=== PATIENT | male | born 1940 | race Caucasian/White ===

== ENCOUNTER 2023-07-27 05:37 | Day surgery (SDC) | payer MEDICARE, BC ==
[2023-07-20 11:52] LABS: BASOPHILS % (AUTO) 0.6 % (0-1); EOSINOPHILS # (AUTO) 0.1 X10'3 (0-0.9); EOSINOPHILS % (AUTO) 2.1 % (0-6); HEMATOCRIT 49.4 % (42.0-52.0); HEMOGLOBIN 16.5 g/dl (14.0-17.9); LYMPHOCYTES # (AUTO) 1.3 X10'3 (1.1-4.8); LYMPHOCYTES % (AUTO) 20.5 % (21-51); MEAN CORPUSCULAR HEMOGLOBIN 32.6 PG (27.0-31.0); MEAN CORPUSCULAR HGB CONC 33.3 g/dL (33.0-36.5); MEAN CORPUSCULAR VOLUME 97.8 FL (78-98); MEAN PLATELET VOLUME 7.3 FL (7.4-10.4); MONOCYTES # (AUTO) 0.6 X10'3 (0-0.9); MONOCYTES % (AUTO) 9.2 % (2-12); NEUTROPHILS # (AUTO) 4.2 X10'3 (1.8-7.7); NEUTROPHILS % (AUTO) 67.6 % (42-75); PLATELET COUNT 199 X10'3 (140-440); RED BLOOD COUNT 5.05 X10'6 (4.70-6.10); RED CELL DISTRIBUTION WIDTH 13.6 % (11.5-14.5); WHITE BLOOD COUNT 6.2 X10'3 (4.5-11.0)
[2023-07-20 12:07] LABS: ALANINE AMINOTRANSFERASE 16 U/L (12-78); ALBUMIN 3.8 G/DL (3.4-5.0); ALBUMIN/GLOBULIN RATIO 1.1 (1.1-1.5); ALKALINE PHOSPHATASE 67 IU/L (46-116); ANION GAP 7 (8-16); ASPARTATE AMINO TRANSFERASE 22 U/L (10-37); BILIRUBIN,TOTAL 0.5 MG/DL (0.1-1.0); BLOOD UREA NITROGEN 31 MG/DL (7-18); BUN/CREATININE RATIO 24.6 (10.0-20.0); CALCIUM 10.2 MG/DL (8.5-10.1); CHLORIDE 103 MMOL/L (99-107); CREATININE 1.26 MG/DL (0.60-1.10); GLUCOSE 137 MG/DL (70-104); POTASSIUM 4.5 MMOL/L (3.5-5.1); SODIUM 135 MMOL/L (135-145); TOTAL CARBON DIOXIDE 24.6 MMOL/L (24-32); TOTAL PROTEIN 7.4 G/DL (6.4-8.2); eGFR 55 ML/MIN
[~2023-07-27] VITALS: Ht 180.3 cm; Wt 125.9 kg
[2023-07-27] VITALS (10 sets, daily range): BP systolic 82–120; BP diastolic 56–78; PULSE 60–62; RESP 12–17; TEMP 98.1; O2SAT 93–96
[~2023-07-27 05:37] MED LIST: APIX5TAB3 PO; BISO10TA16 PO; CHOL200035 PO; DAPA10TA PO; DOCUMENT DATE & TIME OF BETA-BLOCKER PO ONE; FLUT1BLS13 INH; LEVO50TA8 PO; MELO-102 PO; METF500T PO; MULT-342 PO; PSYLLIUM FIBER; SACU1TAB PO; SIMV-42 PO; SPIR25TA5 PO; VITAMIN B 12; VITAMIN D 3; [UNRECOGNIZED DRUG - CODE] PO; clindamycin-Cleocin 900mg/D5W 50 ML IV ONE; famotidine 20mg tablet PO ONE; ringers solution, lacted 1,000 ML IV SCH
[2023-07-27] MEDS ORDERED: BUPIVAcaine/PF 2.5mg/ml (0.25%) 10ml vial ONE (06:38)
[2023-07-27] MEDS ORDERED: cloNIDine hcl/PF 100mcg/ml inj ONE ×2 (07:30→07:34)
[2023-07-27] MEDS ORDERED: fentaNYL/PF 50MCG/1 ML 2ML syringe ONE (07:32)
[2023-07-27] MEDS ORDERED: midazolam 1 mg/ML 2ml injection ONE (07:33)
[2023-07-27] MEDS ORDERED: sevoflurane 250ml liquid IH ONE (07:38)
[2023-07-27] MEDS ORDERED: LIDOcaine 2% (20mg/ml) 5ml vial ONE (08:14)
[2023-07-27] MEDS ORDERED: dexamethasone sod phosphate 4mg/ml inj. ONE ×2 (08:14→08:24)
[2023-07-27] MEDS ORDERED: phenylephrine 10mg/ml inj. -priapism dosing ONE (08:14)
[2023-07-27] MEDS ORDERED: 0.9 % SODIUM CHLORIDE 10 ML VIAL ONE (08:14)
[2023-07-27] MEDS ORDERED: propofol inj 20 ML IV ONE (08:14)
[2023-07-27] MEDS ORDERED: ROPIVAcaine 0.5% (5mg/ml) 30ml vial ONE (08:14)
[2023-07-27] MEDS ORDERED: ondansetron/PF 4mg/2ml inj ONE (08:24)
[2023-07-27] MEDS ORDERED: labetalol 20mg/4ml (5mg/ml) syringe IV PRN (08:35)
[2023-07-27] MEDS ORDERED: hydrALAZINE 20mg/ml inj. IV PRN (08:35)
[2023-07-27] MEDS ORDERED: ringers solution, lacted 1,000 ML IV SCH (08:35)
[2023-07-27] MEDS ORDERED: acetaminophen 1,000mg/100ml IV 100 ML IV PRN (08:35)
[2023-07-27] MEDS ORDERED: ondansetron/PF 4mg/2ml inj IV PRN (08:35)
[2023-07-27] MEDS ORDERED: proCHLORperazine 10 MG/2 ml inj IV PRN (08:35)
[2023-07-27] MEDS ORDERED: meperidine/PF 25mg/ml syringe IV PRN ×3 (08:35)
[2023-07-27] MEDS ORDERED: morphine 2 MG/ML inj. syringe IV PRN (08:35)
[2023-07-27] MEDS ORDERED: morphine 4 MG/ML inj SYRINge IV PRN (08:35)
--- NOTE | 2023-07-27 09:15 | NUR ---
Received from OR via [facility] TO RR 7, accompanied by Anesthesiologist ABBY and report given by Anesthesiologist. PT PRESENTS ON 6L VIA MASK WITH ORAL AIRWAY IN PLACE. PATIENT IS SHOWING NO S/S OF DISTRESS. BP 94/64, DR MORA AWARE AND IS AWARE; NO NEW ORDERS AT THIS TIME. LR RUNNING THRU PIV ON RIGHT WRIST. Addendum: 07/27/23 at 0939 by Virginia Flores RN LEFT ARM/WRIST DRESSING CDI, ICE APPLIED AND ELEVATED
--- NOTE | 2023-07-27 09:59 | NUR ---
CALLED TO GIVE UPDATE
--- NOTE | 2023-07-27 10:35 | NUR ---
PATIENT IS STABLE FOR DISCHARGE PER MD ORDERS. REVIEWED ALL DISCHARGE PAPERWORK WITH PATIENT. ADVISED OF FREQUENT MOVEMENT OF FINGERS, ELEVATION, AND ICE. PATIENT STATES PAIN IS TOLERABLE AND DRESSING TO LEFT WRIST REMAINS CDI. ALL PERSONAL BELONGINGS WERE SENT WITH PATIENT. PATIENT WAS ABLE TO GET DRESSED WITH ASSISTANCE, PATIENT WAS ABLE TO AMBULATE TO WHEELCHAIR. PATIENT WAS WHEELED OUT TO PRIVATE VEHICLE WHERE WAS WAITING AND TRANSFERRED INTO VEHICLE WITHOUT INCIDENT.
== END 2023-07-27 10:35 | disposition home or self-care (01) ==
LOC: PRE-OP 05:37
PROVIDERS: ATTEND Orthopaedic Surgery Hand Surgery
DX: M19.032 Primary osteoarthritis, left wrist (principal); E11.9 Type 2 diabetes mellitus without complications; I48.91 Unspecified atrial fibrillation; I11.0 Hypertensive heart disease with heart failure; I50.9 Heart failure, unspecified; G89.18 Other acute postprocedural pain; E66.01 Morbid (severe) obesity due to excess calories; Z68.38 Body mass index [BMI] 38.0-38.9, adult; Z79.899 Other long term (current) drug therapy; Z88.0 Allergy status to penicillin; Z79.84 Long term (current) use of oral hypoglycemic drugs; Z95.0 Presence of cardiac pacemaker; Z98.890 Other specified postprocedural states; Z72.89 Other problems related to lifestyle; Z96.653 Presence of artificial knee joint, bilateral; Z79.01 Long term (current) use of anticoagulants
CPT/HCPCS: 25800; 36415; 64417; 80053; 82948; 85025; C1713; J0131; J0735; J1100; J2250; J2370; J2405; J2704; J2795; J3010; J3490; J7030; J7120; Z7506; Z7508; Z7512; A4615; A4618; A6449; A7000

== ENCOUNTER → 2023-12-31 | Day surgery (SDC) | payer MEDICARE, BC ==
[2023-12-26 11:18] LABS: BASOPHILS % (AUTO) 0.7 % (0-1); EOSINOPHILS # (AUTO) 0.1 X10'3 (0-0.9); EOSINOPHILS % (AUTO) 2.3 % (0-6); LYMPHOCYTES # (AUTO) 1.2 X10'3 (1.1-4.8); LYMPHOCYTES % (AUTO) 19.8 % (21-51); MEAN CORPUSCULAR HEMOGLOBIN 30.7 PG (27.0-31.0); MEAN CORPUSCULAR HGB CONC 33.2 g/dL (33.0-36.5); MEAN CORPUSCULAR VOLUME 92.4 FL (78-98); MEAN PLATELET VOLUME 6.9 FL (7.4-10.4); MONOCYTES # (AUTO) 0.6 X10'3 (0-0.9); MONOCYTES % (AUTO) 10.9 % (2-12); NEUTROPHILS # (AUTO) 3.9 X10'3 (1.8-7.7); NEUTROPHILS % (AUTO) 66.3 % (42-75); PRE OP HEMATOCRIT 47.6 % (42.0-52.0); PRE OP HEMOGLOBIN 15.8 g/dL (14.0-17.9); PRE OP PLATELET COUNT 204 X10'3 (140-440); PRE OP WHITE BLOOD COUNT 5.9 10'3 (4.8-10.8); RED BLOOD COUNT 5.15 X10'6 (4.70-6.10); RED CELL DISTRIBUTION WIDTH 15.1 % (11.5-14.5)
[2023-12-26 11:36] LABS: ALBUMIN 3.5 G/DL (3.4-5.0); ALBUMIN/GLOBULIN RATIO 0.9 (1.1-1.5); ALKALINE PHOSPHATASE 72 IU/L (46-116); BLOOD UREA NITROGEN 34 MG/DL (7-18); BUN/CREATININE RATIO 27.2 (10.0-20.0); CALCIUM 9.9 MG/DL (8.5-10.1); CHLORIDE 104 MMOL/L (99-107); CREATININE 1.25 MG/DL (0.60-1.10); PRE OP ALT 25 U/L (30-65); PRE OP ANION GAP 9 (8-16); PRE OP AST 23 U/L (10-37); PRE OP BILIRUB, TOTAL 0.7 MG/DL (0.0-1.0); PRE OP GLUCOSE 115 MG/DL (70-104); PRE OP POTASSIUM 4.3 MMOL/L (3.4-5.1); PRE OP SODIUM 137 MMOL/L (135-145); TOTAL CARBON DIOXIDE 23.6 MMOL/L (24-32); TOTAL PROTEIN 7.6 G/DL (6.4-8.2); eGFR 55 ML/MIN
[~2023-12-31] VITALS: Ht 180.3 cm; Wt 125.5 kg
[2023-12-31] VITALS (7 sets, daily range): BP systolic 101–125; BP diastolic 67–76; PULSE 58–70; RESP 12–16; TEMP 97.5; O2SAT 93–100
[~2023-12-31] MED LIST changes: +AMI200T PO; +BUPIVAcaine/PF 2.5mg/ml (0.25%) 10ml vial ONE; -DOCUMENT DATE & TIME OF BETA-BLOCKER PO ONE; +FURO20TA4 PO; +HYDROmorphone/PF 0.2 MG/ML SYRINGE IV PRN; +LIDOcaine 2% (20mg/ml) 5ml vial ONE; +ROPIVAcaine 0.5% (5mg/ml) 30ml vial ONE; +acetaminophen 1,000mg/100ml IV 100 ML IV ONE; -clindamycin-Cleocin 900mg/D5W 50 ML IV ONE; +cloNIDine hcl/PF 100mcg/ml inj ONE; +dexamethasone sod phosphate 4mg/ml inj. ONE; +ePHEDrine 50MG/ML INJ. ONE; -famotidine 20mg tablet PO ONE; +fentaNYL/PF 50MCG/1 ML 2ML syringe ONE; +hydrALAZINE 20mg/ml inj. IV PRN; +ketorolac tromethamine 15mg/ml inj. IV ONE; +labetalol 20mg/4ml (5mg/ml) syringe IV PRN; +meperidine/PF 25mg/ml syringe IV PRN; +midazolam 1 mg/ML 2ml injection ONE; +ondansetron/PF 4mg/2ml inj IV PRN; +ondansetron/PF 4mg/2ml inj ONE; +proCHLORperazine 10 MG/2 ml inj IV PRN; +propofol inj 20 ML IV ONE; +sevoflurane 250ml liquid IH ONE
[2023-12-31] MEDS: DOCUMENT DATE & TIME OF BETA-BLOCKER PO ONE (05:30)
[2023-12-31] MEDS: clindamycin-Cleocin 900mg/D5W 50 ML IV ONE (05:30)
[2023-12-31] MEDS: famotidine 20mg tablet PO ONE (06:32)
[2023-12-31] MEDS: ringers solution, lacted 1,000 ML IV SCH (06:49)
[2023-12-31] MEDS: BUPIVAcaine/PF 2.5mg/ml (0.25%) 10ml vial ONE (08:02)
== END | disposition home or self-care (01) ==
LOC: PAS 05:39
PROVIDERS: ATTEND Orthopaedic Surgery Hand Surgery
DX: M25.532 Pain in left wrist (principal); I11.0 Hypertensive heart disease with heart failure; I50.9 Heart failure, unspecified; E11.9 Type 2 diabetes mellitus without complications; E78.5 Hyperlipidemia, unspecified; I48.91 Unspecified atrial fibrillation; E66.9 Obesity, unspecified; M19.90 Unspecified osteoarthritis, unspecified site; Z85.828 Personal history of other malignant neoplasm of skin; Z68.38 Body mass index [BMI] 38.0-38.9, adult; Z88.0 Allergy status to penicillin
CPT/HCPCS: 25810; 36415; 80053; 82948; 85025; C1713; J0735; J1100; J2250; J2405; J2704; J2795; J3010; J3490; J7030; J7120; Z7506; Z7508; Z7512; A4215; A4618; A6449; A7000

== ENCOUNTER 2025-02-16 06:44 | Day surgery (SDC) | payer MEDICARE, BC ==
[2025-02-12 13:57] LABS: BASOPHILS # (AUTO) 0.1 X10'3 (0-0.2); BASOPHILS % (AUTO) 1.4 % (0-1); EOSINOPHILS # (AUTO) 0.1 X10'3 (0-0.9); EOSINOPHILS % (AUTO) 2.1 % (0-6); HEMATOCRIT 46.5 % (42.0-52.0); HEMOGLOBIN 15.5 g/dl (14.0-17.9); LYMPHOCYTES # (AUTO) 1.5 X10'3 (1.1-4.8); LYMPHOCYTES % (AUTO) 25.8 % (21-51); MEAN CORPUSCULAR HEMOGLOBIN 29.3 PG (27.0-31.0); MEAN CORPUSCULAR HGB CONC 33.5 g/dL (33.0-36.5); MEAN CORPUSCULAR VOLUME 87.7 FL (78-98); MONOCYTES # (AUTO) 0.6 X10'3 (0-0.9); MONOCYTES % (AUTO) 11.4 % (2-12); NEUTROPHILS # (AUTO) 3.4 X10'3 (1.8-7.7); NEUTROPHILS % (AUTO) 59.3 % (42-75); PLATELET COUNT 196 X10'3 (140-440); RED CELL DISTRIBUTION WIDTH 16.6 % (11.5-14.5); WHITE BLOOD COUNT 5.6 X10'3 (4.5-11.0)
[2025-02-12 14:09] LABS: ALANINE AMINOTRANSFERASE 25 U/L (12-78); ALBUMIN 3.6 G/DL (3.4-5.0); ALBUMIN/GLOBULIN RATIO 0.9 (1.1-1.5); ALKALINE PHOSPHATASE 101 IU/L (46-116); ANION GAP 5 (8-16); ASPARTATE AMINO TRANSFERASE 21 U/L (10-37); BILIRUBIN,TOTAL 0.9 MG/DL (0.1-1.0); BLOOD UREA NITROGEN 35 MG/DL (7-18); BUN/CREATININE RATIO 24.3 (10.0-20.0); CALCIUM 9.3 MG/DL (8.5-10.1); CHLORIDE 105 MMOL/L (99-107); CREATININE 1.44 MG/DL (0.60-1.10); GLUCOSE 200 MG/DL (70-104); POTASSIUM 4.4 MMOL/L (3.5-5.1); SODIUM 138 MMOL/L (135-145); TOTAL PROTEIN 7.6 G/DL (6.4-8.2); eGFR 47 ML/MIN
[~2025-02-16] VITALS: Ht 180.3 cm; Wt 126.1 kg
[2025-02-16] MEDS: clindamycin-Cleocin 900mg/D5W 50 ML IV ONE (05:30)
[~2025-02-16 06:44] MED LIST changes: -AMI200T PO; -BUPIVAcaine/PF 2.5mg/ml (0.25%) 10ml vial ONE; +CBD GUMMIES PO; -CHOL200035 PO; +CHOL50004 PO; +CYAN250010 PO; +DOCUMENT DATE & TIME OF BETA-BLOCKER PO ONE; -HYDROmorphone/PF 0.2 MG/ML SYRINGE IV PRN; -LIDOcaine 2% (20mg/ml) 5ml vial ONE; -METF500T PO; +OMEGA XL PO; +PANT40TA54 PO; -PSYLLIUM FIBER; +PSYLLIUM FIBER PO; -ROPIVAcaine 0.5% (5mg/ml) 30ml vial ONE; -VITAMIN B 12; -VITAMIN D 3; -acetaminophen 1,000mg/100ml IV 100 ML IV ONE; -cloNIDine hcl/PF 100mcg/ml inj ONE; -dexamethasone sod phosphate 4mg/ml inj. ONE; -ePHEDrine 50MG/ML INJ. ONE; -fentaNYL/PF 50MCG/1 ML 2ML syringe ONE; -hydrALAZINE 20mg/ml inj. IV PRN; -ketorolac tromethamine 15mg/ml inj. IV ONE; -labetalol 20mg/4ml (5mg/ml) syringe IV PRN; -meperidine/PF 25mg/ml syringe IV PRN; -midazolam 1 mg/ML 2ml injection ONE; -ondansetron/PF 4mg/2ml inj IV PRN; -ondansetron/PF 4mg/2ml inj ONE; -proCHLORperazine 10 MG/2 ml inj IV PRN; -propofol inj 20 ML IV ONE; -ringers solution, lacted 1,000 ML IV SCH; -sevoflurane 250ml liquid IH ONE
[2025-02-16 06:56] VITALS: BP 132/67; PULSE 60; RESP 16; TEMP 98; O2SAT 98
[2025-02-16] MEDS ORDERED: LIDOcaine 2% (20mg/ml) 5ml vial ONE (07:05)
[2025-02-16] MEDS ORDERED: BUPIVAcaine/PF 2.5mg/ml (0.25%) 10ml vial ONE (07:05)
[2025-02-16] MEDS: famotidine 20mg tablet PO ONE (07:31)
[2025-02-16] MEDS: ringers solution, lacted 1,000 ML IV SCH (07:32)
[2025-02-16] MEDS ORDERED: morphine 4 MG/ML inj SYRINge IV PRN (08:15)
[2025-02-16] MEDS ORDERED: labetalol 20mg/4ml (5mg/ml) syringe IV PRN (08:15)
[2025-02-16] MEDS ORDERED: HYDROmorphone/PF 0.2 MG/ML SYRINGE IV PRN ×2 (08:15)
[2025-02-16] MEDS ORDERED: proCHLORperazine 10 MG/2 ml inj IV PRN (08:15)
[2025-02-16] MEDS ORDERED: meperidine/PF 25mg/ml syringe IV PRN (08:15)
[2025-02-16] MEDS ORDERED: ondansetron/PF 4mg/2ml inj IV PRN (08:15)
[2025-02-16] MEDS ORDERED: ketorolac trometh 15mg/ml vial 15 MG/ML ML IV ONE (08:15)
[2025-02-16] MEDS ORDERED: ringers solution, lacted 1,000 ML IV SCH (08:15)
[2025-02-16] MEDS ORDERED: morphine 2 MG/ML inj. syringe IV PRN (08:15)
[2025-02-16] MEDS ORDERED: hydrALAZINE 20mg/ml inj. IV PRN (08:15)
[2025-02-16] MEDS ORDERED: BUPIVAcaine 2.5mg/ml inj 50ml vial (contains preservative) ONE (09:03)
[2025-02-16] MEDS ORDERED: fentaNYL/PF 50MCG/1 ML 2ML syringe ONE (09:26)
[2025-02-16] MEDS ORDERED: midazolam 1 mg/ML 2ml injection ONE (09:41)
[2025-02-16] MEDS ORDERED: propofol inj 20 ML IV ONE (09:41)
[2025-02-16] MEDS ORDERED: propofol (Diprivan) 10mg/ml 100ml bottle IV ONE (09:43)
[2025-02-16 10:08] VITALS: BP 108/60; PULSE 60; RESP 14; O2SAT 96
[2025-02-16] MEDS: acetaminophen 1,000mg/100ml IV 100 ML IV PRN (10:16)
[2025-02-16 10:20] VITALS: BP 118/72; PULSE 60; RESP 21; O2SAT 98
[2025-02-16 10:30] VITALS: BP 120/74; PULSE 60; RESP 17; O2SAT 95
[2025-02-16 10:40] VITALS: BP 123/78; PULSE 60; RESP 18; O2SAT 97
[2025-02-16 10:48] VITALS: BP 124/99; PULSE 60; RESP 18; O2SAT 98
--- NOTE | 2025-02-16 15:12 | OPERATIVE REPORT ---
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 He presented was persistent disabling ulnar- sided wrist pain. Imaging was consistent with impingement of the distal ulna. The fusion appeared to be solidly united at the radiocarpal joints. Surgery today is indicated to relieve pain and improve function. Risks and benefits were discussed with the patient. Some of the risks of the type of procedure include but are not limited to infection, scar pain, numbness of the surgical site and incomplete relief of symptoms. He agreed to proceed. After the block was given the arm was prepped and draped in usual manner an inci aaron was made over the dorsal ulnar area with the incision down through the joint to the ulnocarpal joint. There was some impingement on the distal ulna and the triquetrum and the sagittal saw was used to remove portion of the distal ulna taking care not to destabilize it or disrupt the DRUJ. Portion of the triquetrum was removed as well and this allowed us to have some space there without impingement. Under fluoro with the fusion was checked and appeared to be solidly united was no evidence of failure. The incision of the distal ulna was then irrigated and closed in layers. Marcaine was injected and a sterile dressing was then applied. The patient was awakened and taken to the recovery room in stable condition. SHUBHAM COLE Jr., MD Feb 16, 2025 15:12
== END 2025-02-16 10:48 | disposition home or self-care (01) ==
LOC: PAS 06:44
PROVIDERS: ATTEND Orthopaedic Surgery Hand Surgery
DX: M24.832 Other specific joint derangements of left wrist, not elsewhere classified (principal); E11.9 Type 2 diabetes mellitus without complications; Z88.0 Allergy status to penicillin; M19.032 Primary osteoarthritis, left wrist; I48.91 Unspecified atrial fibrillation; M19.90 Unspecified osteoarthritis, unspecified site; I11.0 Hypertensive heart disease with heart failure; I50.9 Heart failure, unspecified; Z82.49 Family history of ischemic heart disease and other diseases of the circulatory system; Z98.890 Other specified postprocedural states; Z95.0 Presence of cardiac pacemaker; Z79.899 Other long term (current) drug therapy; Z96.651 Presence of right artificial knee joint; Z98.49 Cataract extraction status, unspecified eye
CPT/HCPCS: 25240; 36415; 80053; 82948; 85025; A4618; A6449; A7000; J0131; J2003; J2250; J2704; J3010; J3490; J7030; J7120; Z7506; Z7512; Z7610

== ENCOUNTER 2025-05-05 10:47 | Day surgery (SDC) | payer MEDICARE, BC ==
[2025-05-05] VITALS (10 sets, daily range): BP systolic 120–140; BP diastolic 61–81; PULSE 60; RESP 14–16; TEMP 97.2; O2SAT 93–97
[~2025-05-05] VITALS: Ht 180.3 cm; Wt 126.6 kg
[~2025-05-05 10:47] MED LIST changes: -DOCUMENT DATE & TIME OF BETA-BLOCKER PO ONE
--- NOTE | 2025-05-05 11:25 | ELECTROCARDIOGRAPH REPORT ---
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 ANTIONE Leone Measurements Intervals [place] Rate: 60 P: -17 [place]: 206 QRS: -68 QRSD: 161 T: 83 QT: 462 QTc: 462 Interpretive Statements A-V dual-paced rhythm with some inhibition No further analysis attempted due to paced rhythm Electronically Signed On 05-06-2025 16:53:[address] ANTIONE Leone Please click the below link to view image of tracing.
[2025-05-05] MEDS ORDERED: LIDOcaine 1% (10mg/ml) 2ml vial ONE (14:31)
[2025-05-05] MEDS ORDERED: midazolam 1 mg/ML 2ml injection ONE (14:31)
[2025-05-05] MEDS ORDERED: fentaNYL/PF 50MCG/1 ML 2ML syringe ONE (14:31)
[2025-05-05] MEDS ORDERED: verapamil 2.5 mg/ml inj IV ONE (14:31)
[2025-05-05] MEDS ORDERED: heparin 1,000unit/ml 10ml vial 10 ML ONE (14:31)
[2025-05-05] MEDS ORDERED: nitroGLYCERIN 500mcg/5mL D5W 5 ML IV ONE (14:33)
[2025-05-05] MEDS ORDERED: LIDOcaine 1% 30ml preserv. free vial ONE (15:05)
[2025-05-05 15:28] LABS: ISTAT HGB ART 16.3 g/dl (14.0-17.9); ISTAT Hct ART 48 %PCV (42-52); ISTAT O2 SATURATION ARTERIAL 93 % (95-98); ISTAT SOURCE ART
[2025-05-05] MEDS ORDERED: HYDROcodone/acetaminophen 5mg/325mg tablet PO PRN (15:55)
[2025-05-05] MEDS ORDERED: HYDROcodone/acetaminophen 10/325mg tab PO PRN (15:55)
[2025-05-05] MEDS ORDERED: diltiazem CD 180mg cap (once-daily) PO SCH (16:30)
--- NOTE | 2025-05-05 20:31 | CARDIAC CATH REPORT ---
Cardiac Cath Report Providers to CC CC: MARY JO MILLER MD Procedure Comments: 1. Right Heart Catheterization 2. Selective Coronary Angiography 3. Right Femoral vein access 4. Right Femoral artery access 5. Right femoral artery angiography 6. Closure of femoral artery with Perclose x 1 7. Femoral vein and artery used given poor Rt brachial IV and prior right thumb/wrist surgery Brief History/Indications: 84yo man with HTN, HLD, Afib, Hypothyroidism, Obesity, severe symptomatic aortic stenosis referred for evaluation prior to consideration of AVR. Techniques: After informed consent was obtained, the patient was brought to the cardiac catheterization laboratory and prepped and draped in usual sterile fashion for left heart catheterization and other procedures mentioned above. The right groin was anesthetized with 1% Lidocaine and the femoral artery accessed via the Seldinger technique after which a 6Fr sheath was placed. The femoral vein accessed via the Seldinger technique after which a 6Fr sheath was placed. Through this a swan was advanced to the right atrium, the right ventricle, the pulmonary artery, and the wedge position. Through the femoral artery sheath, a JL4 was used to engage the left coronary artery, a JR4 to engage the right coronary artery. At the conclusion of the case the sheath was removed and hemostasis obtained with perclose for the arterial sheath and manual compression for the venous sheath. Findings Findings: HEMODYNAMICS: RA: 5 mmHg RV: 43/1, RVEDP 8 mmHg PA: 43/19, mPAP 26 mmHg PCWP: 6 mmHg(V-waves to 11mmHg) TP mmHg DP mmHg Ao: 120/60, MAP 84 mmHg HR: 67 bpm LV: Not obtained due to known severe PA Sat: 57% Ao Sat: 93% CO/CI (Charo): 3.3/1.4 PVR: 5 TRAVIS CORONARY ARTERIES: Co Dominant LMCA: Luminal Irregularities LAD: Luminal Irregularities Dx: Luminal Irregularities LCx: Luminal Irregularities OM1: 60-70% stenosis OM2: Luminal Irregularities OM3: Luminal Irregularities RCA: Luminal Irregularities PDA: Luminal Irregularities PL: Luminal Irregularities Results Results: 1. Moderate CAD involving the OM1. Otherwise, No significant obstructive CAD 2. RFA and RFV access, closed with perclose and manual compression RECOMMENDATIONS: 1. Agree with referral to [facility] TAVR clinic for evaluation of severe, symptomatic aortic stenosis. ORA MILLER MD May 05, 2025 20:31
[2025-05-06 09:06] LABS: ISTAT HGB MIX 16.0 g/dl (14.0-17.9); ISTAT Hct MIX 47 %PCV (42-52); ISTAT O2 SATURATION MIX VENOUS 57 % (60-80); ISTAT SOURCE VEN
== END 2025-05-05 18:30 | disposition home or self-care (01) ==
LOC: SSTAY O 10:47
PROVIDERS: ATTEND Student in an Organized Health Care Education/Training Program
DX: I35.0 Nonrheumatic aortic (valve) stenosis (principal); E78.5 Hyperlipidemia, unspecified; I48.91 Unspecified atrial fibrillation; E03.9 Hypothyroidism, unspecified; E66.9 Obesity, unspecified; Z79.899 Other long term (current) drug therapy; Z98.890 Other specified postprocedural states; Z88.0 Allergy status to penicillin; I50.9 Heart failure, unspecified; I11.0 Hypertensive heart disease with heart failure
CPT/HCPCS: 82803; 82948; 85014; 93005; 93456; 99152; A6258; C1751; C1760; C1894; J1644; J2003; J2250; J3010; J3490; J7030; Q0163; Q9967; Z7610; 76937; 99153

== ENCOUNTER 2025-07-01 07:30 | Outpatient (CLI) | payer MEDICARE, BC ==
[2025-07-01 08:01] LABS: MEAN PLATELET VOLUME 7.0 FL (7.4-10.4); RED CELL DISTRIBUTION WIDTH 15.2 % (11.5-14.5)
[2025-07-01 08:10] LABS: APTT 31 SECONDS (22-32); INR 1.1 INR
[2025-07-01] MEDS ORDERED: IODIXANOL 320 MG/ML INFUS..BTL 100ML IV ONE (08:13)
[2025-07-01 08:17] LABS: CREATININE 1.60 MG/DL (0.60-1.10); PRO BRAIN NATRIURETIC PEPTIDE 188 PG/ML (0-450); TOTAL CARBON DIOXIDE 27.3 MMOL/L (24-32); eGFR 41 ML/MIN
--- NOTE | 2025-07-01 09:05 | RADIOLOGY REPORT ---
CHEST RADIOGRAPH Indication: AV STENOSIS,SOB,CAROTID STENOSIS Technique: Frontal and lateral view of the chest was obtained Comparison: None FINDINGS: Lines and Tubes: Left chest pacemaker Lungs: Congestion Pleura: No effusion. No pneumothorax. Cardiomediastinal contours: Unremarkable Bones: Unremarkable IMPRESSION: Increased interstital prominence. This may represent pulmonary vascular congestion and/or viral pneumonia. Clinical correlation advised.
--- NOTE | 2025-07-02 16:21 | RADIOLOGY REPORT ---
EXAM: CT CTA TAVR CLINICAL HISTORY: AV STENOSIS,SOB,CAROTID STENOSIS TECHNIQUE: Arterial phase spiral acquisitions obtained through the chest, abdomen, and pelvis. Multiplanar reconstructions were generated. Using automated software tools and 3-D reconstructions, imaging analysis of the aortic valve was performed. Dose reduction effected using automated exposure control and iterative reconstruction technique. 2-D and 3-D reformations are generated at a separate independent workstation. All CT scans at this facility are performed using dose modulation techniques as appropriate to a performed exam including the following: automated exposure control with adjustment of the mA and/or kV according to patient size. RADIATION DOSE: CTDI vol: 66 mGy DLP: The 2627 mGy-cm Dose information generated by the CT scanner is available in PACS. IV Contrast: 120 cc visipaque 320 COMPARISON: CATH HEART CATH W/WO STENT on DOS: 05/05/25 FINDINGS: Aortic valve annulus diameter: 28.4 x 26.8 mm. Aortic valve area: 5.63 cm2. Perimeter: 85.4 mm. Diameter through left coronary sinus: 35.3 mm. Diameter through right coronary sinus: 34.7 mm. Diameter through the noncoronary sinus: 35.2 mm. Diameter at the sinotubular junction: 27.1 mm. Distance from the right coronary sinus to right coronary orifice: 18.3 mm. Distance from left coronary sinus to left coronary orifice: 17.8 mm. Diameter of ascending aorta: 32.1 mm. Diameter of abdominal aorta: 15.9 mm. Diameter of the right common iliac artery: 13.5 mm. Diameter of the right external iliac artery: 7.41 mm. Diameter of the right common femoral artery: 6.82 mm. Diameter of left common iliac artery: 11.5 mm. Diameter of the left external iliac artery: 10.2 mm. Diameter of the left common femoral artery: 8.97 mm. Optimal coplanar projections: 3 cusp view- SCOUT 8, LAUNDRY CLERK 33 Anterior view -VANEGAS 0, LAUNDRY CLERK 29 No-LAUNDRY CLERK-CAU view -VANEGAS 35, CAU 0 Other findings: Chest: No pulmonary nodule or mass is identified. There is no bronchiectasis or honeycombing. There is bronchial wall thickening consistent with bronchitis. There is no pleural effusion. There is no pneumothorax. The visualized thyroid gland is unremarkable. The heart is not enlarged. There is no pericardial effusion. No pathologic lymphadenopathy is identified in the chest. There is a cardiac pacer. Spleen: Unremarkable. Liver: Unremarkable. Gallbladder/bile ducts: There is a 2.0 cm calcified stone within the gallbladder neck. There is no pericholecystic edema. The gallbladder is not distended. There is no intrahepatic biliary dilation. Pancreas: There is a 0.8 cm hypodense lesion within the body of the pancreas that is too small to characterize and likely represents a side branch IPMN. The pancreas is otherwise unremarkable. Adrenal glands: Unremarkable. Kidneys and ureters: Unremarkable. Urinary bladder: There is a small diverticulum at the dome of the bladder. The bladder appears diffusely thick walled, likely secondary to chronic outlet obstruction. Reproductive structures: The prostate is enlarged. There are bilateral scrotal hydroceles. Peritoneum/gastrointestinal: There is a small fat containing left inguinal hernia. No free fluid is identified in the abdomen or pelvis. There is extensive sigmoid and descending colon diverticulosis without evidence of diverticulitis. The colonic stool burden is small. The appendix is normal. There is no distention of the small bowel. There is a partially visualized complex fat containing umbilical hernia. A portion of the abdomen is outside of the field of view of the gantry secondary to patient body habitus. Lymph nodes: Unremarkable. Bones: No acute osseous abnormality is identified. There are severe degenerative changes at the left shoulder. There are is extensive degenerative change throughout the visualized spine. Soft tissues: Unremarkable. IMPRESSION: TAVR MEASUREMENTS ABOVE. Cholelithiasis without evidence of cholecystitis. Hypodense 0.8 cm lesion within the body of the pancreas that is too small to characterize and likely represents a side branch IPMN. Small fat containing left inguinal hernia. Complex fat containing umbilical hernia, only partially visualized.
== END 2025-07-01 23:59 | disposition home or self-care (01) ==
LOC: RAD 07:30
PROVIDERS: ATTEND Internal Medicine Cardiovascular Disease
DX: K80.20 Calculus of gallbladder without cholecystitis without obstruction (principal); I35.0 Nonrheumatic aortic (valve) stenosis; R06.02 Shortness of breath; I65.29 Occlusion and stenosis of unspecified carotid artery; K76.89 Other specified diseases of liver; K40.90 Unilateral inguinal hernia, without obstruction or gangrene, not specified as recurrent; K42.9 Umbilical hernia without obstruction or gangrene
CPT/HCPCS: 36415; 71046; 71275; 74174; 75572; 80053; 83880; 85025; 85610; 85730; Q9967

== ENCOUNTER 2025-07-24 05:36 | Inpatient (IN) | payer MEDICARE, BC ==
--- NOTE | 2025-07-20 14:42 | ELECTROCARDIOGRAPH REPORT ---
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 ANTIONE Leone Measurements Intervals [place] Rate: 62 P: 0 MT: 0 QRS: -68 QRSD: 158 T: 91 QT: 442 QTc: 449 Interpretive Statements Afib/flut and V-paced complexes No further analysis attempted due to paced rhythm Electronically Signed On 07-20-2025 17:49:[address] ANTIONE Leone Please click the below link to view image of tracing.
[2025-07-20 15:16] LABS: MEAN PLATELET VOLUME 7.5 FL (7.4-10.4); PRE OP HEMATOCRIT 48.6 % (42.0-52.0); PRE OP HEMOGLOBIN 16.4 g/dL (14.0-17.9); PRE OP PLATELET COUNT 196 X10'3 (140-440); PRE OP WHITE BLOOD COUNT 7.3 10'3 (4.8-10.8); RED CELL DISTRIBUTION WIDTH 14.9 % (11.5-14.5)
[2025-07-20 15:17] LABS: LEUKOCYTE ESTERASE ,URINE SMALL (Neg); NITRITES, URINE NEGATIVE (Neg); OCCULT BLOOD,URINE TRACE-INTACT (Neg)
[2025-07-20 15:30] LABS: PRE OP INR 1.2 INR; PRE OP PARTIAL THROMB. TIME 31.0 SECONDS (22-32); PRE OP PROTIME 11.9 SECONDS (9.0-12.0)
--- NOTE | 2025-07-20 15:33 | RADIOLOGY REPORT ---
DI CHEST,TWO VIEWS, CATH HEART CATH W/WO STENT CLINICAL HISTORY: PRE OP CXR TAVR COMPARISON: DI CHEST,TWO VIEWS on DOS: 07/01/25 TECHNIQUE: Frontal and lateral view of the chest was obtained FINDINGS: Lines and Tubes: DUAL LEAD LEFT-SIDED PACEMAKER. Lungs: No focal consolidation. Pleura: No effusion. No pneumothorax. Cardiomediastinal contours: Unremarkable Bones: No acute osseous abnormality. IMPRESSION: No acute cardiopulmonary disease.
[2025-07-20 15:41] LABS: CREATININE 1.66 MG/DL (0.60-1.10); PRE OP ALT 23 U/L (30-65); PRE OP ANION GAP 5 (8-16); PRE OP AST 22 U/L (10-37); PRE OP BILIRUB, TOTAL 0.6 MG/DL (0.0-1.0); PRE OP GLUCOSE 181 MG/DL (70-104); PRE OP POTASSIUM 4.4 MMOL/L (3.4-5.1); PRE OP SODIUM 139 MMOL/L (135-145); PRO BRAIN NATRIURETIC PEPTIDE 225 PG/ML (0-450); TOTAL CARBON DIOXIDE 31.3 MMOL/L (24-32); eGFR 40 ML/MIN
[2025-07-20 15:42] LABS: UA COLLECTION TYPE NON-SPECIFIED
[2025-07-20 15:43] LABS: SQUAMOUS EPITHELIAL CELL,UR MODERATE /LPF (FEW)
[2025-07-24] VITALS (33 sets, daily range): BP systolic 105–143; BP diastolic 58–80; PULSE 60–65; RESP 10–20; TEMP 97.3–97.9; O2SAT 92–98
[~2025-07-24] VITALS: Ht 180.3 cm; Wt 126.8 kg
[2025-07-24] MEDS: nitroPRUSSIDE (NIPRIDE) (200MCG/ML) 100ML Drip IV SCH (05:30)
[2025-07-24] MEDS: phenylephrine inj 50 MG in normal saline 250ml IV solN IV SCH (05:30)
[~2025-07-24 05:36] MED LIST changes: +ACET-1013 PO; -BISO10TA16 PO; +BISO5TAB PO; +ondansetron/PF 4mg/2ml inj IV PRN
[2025-07-24] MEDS: VANCOMYCIN/H2O 1.5g/300mL PB 300 ML IV ONE (06:26)
[2025-07-24] MEDS: ringers solution, lacted 1,000 ML IV SCH ×2 (06:33→19:01)
[2025-07-24] MEDS ORDERED: morphine 4 MG/ML inj SYRINge IV PRN ×2 (07:55→10:02)
[2025-07-24] MEDS ORDERED: labetalol 20mg/4ml (5mg/ml) syringe IV PRN ×2 (07:55→09:55)
[2025-07-24] MEDS ORDERED: hydrALAZINE 20mg/ml inj. IV PRN ×2 (07:55→09:55)
[2025-07-24] MEDS ORDERED: ondansetron/PF 4mg/2ml inj IV PRN ×2 (07:55→09:55)
[2025-07-24] MEDS ORDERED: HYDROmorphone/PF 0.2 MG/ML SYRINGE IV PRN ×2 (07:55)
[2025-07-24] MEDS ORDERED: heparin 1,000 UNITS/NS 500ml 1,500 ML ONE (08:06)
[2025-07-24] MEDS ORDERED: LIDOcaine 1% 30ml preserv. free vial ONE (08:06)
[2025-07-24] MEDS ORDERED: LIDOcaine 1% (10mg/ml) 2ml vial ONE (08:06)
[2025-07-24] MEDS ORDERED: protamine sulf. 10mg/ml inj. IV ONE (08:36)
[2025-07-24] MEDS ORDERED: propofol inj 20 ML IV ONE (08:38)
[2025-07-24] MEDS ORDERED: fentaNYL/PF 50MCG/1 ML 2ML syringe ONE (08:39)
[2025-07-24] MEDS ORDERED: heparin 1,000unit/ml 10ml vial 10 ML ONE (09:02)
[2025-07-24] MEDS ORDERED: potassium CL 10mEq/100ml bag 100 ML IV PRN (09:55)
[2025-07-24] MEDS ORDERED: HYDROcodone/acetaminophen 5mg/325mg tablet PO PRN (09:55)
[2025-07-24] MEDS ORDERED: magnesium sulf-water 2g/50mL 50 ML IV PRN (09:55)
[2025-07-24] MEDS ORDERED: potassium Cl 40MEQ/1/2NS 520ml 520 ML IV PRN (09:55)
[2025-07-24] MEDS ORDERED: potassium Cl 40MEQ/270ML bag 250 ML IV PRN (09:55)
[2025-07-24] MEDS ORDERED: potassium Cl 20 mEq SR tablet PO PRN (09:55)
[2025-07-24] MEDS ORDERED: docusate sod 100mg capsule PO PRN (09:55)
[2025-07-24] MEDS ORDERED: potassium Cl 20mEq/100mL bag 100 ML IV PRN (09:55)
[2025-07-24] MEDS ORDERED: ALPRAZolam 0.25mg tablet PO PRN (09:55)
[2025-07-24] MEDS ORDERED: magnesium sulf-water 4G/100mL 100 ML IV PRN (09:55)
[2025-07-24] MEDS ORDERED: pantoprazole 40mg Tablet.DR PO PRN (09:55)
--- NOTE | 2025-07-24 10:02 | OPERATIVE REPORT ---
Operative Report Providers to CC CC: MARY JO CABRERA MD ~ Date of Procedure: Jul 24, 2025 Pre-Operative Diagnosis: Severe Aortic Stenosis Post-Operative Diagnosis SAME as PRE-Op Procedure Performed 1. Ultrasound-guided access, bilateral femoral vessels. 2. Bilateral femoral angiography. 3. Ascending aortography. 4. Temporary transvenous pacer to the RV apex. 5. Placement of a 26+2 mm Padilla S3 Resilia valve. Surgeon: Ora Cabrera MD Burning Plant Operator MD Dr. 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 They underwent general anesthesia. A right radial arterial line was placed. Ultrasound was used to guide access to the bilateral femoral vessels, 7-Stateless sheath, right femoral artery, 6-Stateless sheath, left femoral artery and vein. Bilateral femoral angiograms were obtained. Heparin was given to maintain an ACT over 250 seconds. Two crisscross Percloses were placed on the left. We upsized to an 8-Stateless sheath. Two pigtail catheters placed in the ascending aorta. Ascending aortography done to determine the angle of deployment. Temporary transvenous pacer to the RV apex and confirmed capture. We upsized an 8-Stateless sheath to a 14-Stateless Padilla eSheath on the left. We crossed the aortic valve using a straight stiff exchange length Terumo wire supported by a 6-Stateless AL1 catheter. LV AO pressures were recorded. A Cook extra support wire was placed in the left ventricle. A 26+2mm Padilla S3 Resilia valve was brought to position and under rapid right ventricular pacing was deployed. Post-procedure, there was trivial AI and no residual . Guidewires and balloons were removed at this time. The temporary pacer was removed. The 14-Stateless Padilla eSheath was removed and two crisscross Percloses tied with adequate hemostasis. The arterial sheath on the right was removed and a single Perclose tied. The venous sheath on the left was removed and a single Angioseal used for hemostasis. Protamine was given to reverse the effects of heparin. The patient was stable post-procedure. Good pulses in the legs and no evidence of bleeding, transferred to the PACU in stable condition. HEMODYNAMICS: See procedure log RESULTS: 1. Successful placement of a 26(+2) mm Padilla S3 Resilia valve, left transfemoral approach, two perclose devices. Resume OAC in AM if no signs/symptoms of bleeding 2. Chronic systolic heart failure. Resume GDMT 3. Hypertension: Resume if blood pressure remains stable 4. Afib: Resume OAC as above Patient will be watched in the recovery area until stable, then transferred to telemetry at that time. ORA CABRERA MD Jul 24, 2025 10:02
--- NOTE | 2025-07-24 10:09 | ELECTROCARDIOGRAPH REPORT ---
[facility] Test Date: 2025-07-24 Test Time: 11:04:55 Pat Name: CHATO GARRISON Department: [facility] IN Room: [place] [address] Gender: M Authorizer: : 1940 Requested By: ORA MILLER Order Number: [id number] Reading MD: Dr. ANTIONE Leone Measurements Intervals [place] Rate: 60 P: 20 MD: 200 QRS: -70 QRSD: 168 T: 94 QT: 475 QTc: 475 Interpretive Statements Ventricular-paced rhythm No further analysis attempted due to paced rhythm Electronically Signed On 07-24-2025 16:52:[address] ANTIONE Leone Please click the below link to view image of tracing.
[2025-07-24] MEDS: acetaminophen 1,000mg/100ml IV 100 ML IV PRN (11:46)
[2025-07-24] MEDS: normal saline 1000ml 1,000 ML IV SCH (12:35)
--- NOTE | 2025-07-24 15:01 | CARDIOLOGY REPORT ---
APPROVED REPORT EXAM: Focused, limited intraprocedural transthoracic 2D, spectral and color flow Doppler echocardiogram during TAVR deployment. Study contains pre- and post-op images. Patient Location: CARDIAC FURNACE CLERK Blood Pressure: 84/55 mmHg Heart Rate: 60 bpm Rhythm: PACED Indications SEVERE AORTIC STENOSIS 26 mm Padilla Samuel 3 Ultra RESILIA Bioprosthetic TAVR HYPERTENSION HYPERTENSION DIABETES MELLITUS ATRIAL FIBRILLATION PACEMAKER Locomotive Repairer Diesel: Kp Cabrera MD / Interventionalist: Kp Cabrera MD and Manav Watt MD. / Surgeon: Marshall Dinh MD. / Device rep: Scott Nevarez ELS Previous echo: 04/21/25 CVC NR (EF 54%, KAREN 0.87 cmsq, pkV 3.8 m/s, pk/mn grad 58/39 mmHg) LEFT VENTRICLE PRE: Normal LV size and moderately reduced function. Mild concentric hypertrophy. LVEF is 40-45%. POST: Unchanged. RIGHT VENTRICLE PRE: RV appears normal in size and function. POST: Unchanged. ATRIA PRE: LA appears moderately dilated. POST: Unchanged. AORTIC VALVE PRE: Trileaflet AV appears heavily calcified with significant stenosis demonstrated by reduced excursion and increased transvalvular and ascending aorta turbulance. KAREN: 0.70 cmsq; Pkv: 3.80 m/sec; Gradients: 57 / 30 mmHG. Trace insufficiency. POST DEPLOYMENT (LOOP: 48): 26 mm Padilla Samuel 3 Ultra Re silia bioprosthetic TAVR appears well seated with normal function. Trace paravalvular leak present at 7 and 12 o'clock in TTE SAX BASE. KAREN is measured at 3.50 cmsq. Peak / mean gradients of 10 / 5 mmHG. Peak velocity is measured at 1.57 m/sec. MITRAL VALVE PRE: Mild MV annular calcification without stenosis. Trace regurgitation. POST: Unchanged. TRICUSPID VALVE PRE: TV appears structurally normal with trace regurgitation. POST: Unchanged. PERICARDIUM PRE: Normal pericardium. No effusion. POST: Unchanged.
[2025-07-24] MEDS: sod chloride 0.9% 10ml flush syringe IV SCH (16:00)
--- NOTE | 2025-07-24 16:24 | OPERATIVE REPORT ---
Operative Report Providers to severe aortic stenosis Date of Procedure: Jul 24, 2025 Pre-Operative Diagnosis: Severe Aortic Stenosis Post-Operative Diagnosis SAME as PRE-Op Procedure Performed TAVR with # 26 Padilla Resilia valve Surgeon: Fabrizio FORMAN Case Manager - Kp Berry MD Cardiac Exercise Physiologist Shukri FORMAN Anesthesiologist: Tarun Garcia Type of Anesthesia: General Findings: no pericardial effusion post procedure with mean AVG < 5 mmHg Complications none Prosthetics\Implants used: Padilla TAVR # 26 Resilia valve Estimated Blood Loss: minimal Specimen Removed: none Description of Procedure: 1. Ultrasound-guided access, bilateral femoral vessels. 2. Bilateral femoral angiography. 3. Ascending aortography. 4. Temporary transvenous pacer to the RV apex. 5. Placement of a 26+2 mm Padilla S3 Resilia valve. Description of Procedure: The patient was brought to the vat house laborer and underwent general anesthesia. A right radial arterial line was placed. Ultrasound was used to guide access to the bilateral femoral vessels, 7-Puerto Rican sheath, right femoral artery, 6-Pu[place] Rican sheath, left femoral artery and vein. Bilateral femoral angiograms were obtained. Heparin was given to maintain an ACT over 250 seconds. Two crisscross Percloses were placed on the left. We upsized to an 8-Pu[place] Rican s romeo. Two pigtail catheters placed in the ascending aorta. Ascending aortography done to determine the angle of deployment. Temporary transvenous pacer to the RV apex and confirmed capture. We upsized an 8-Puerto Rican sheath to a 14-Puerto Rican Padilla eSheath on the left. We crossed the aortic valve using a straight stiff exchange length Terumo wire supported by a 6-Puerto Rican AL1 catheter. LV AO pressures were recorded. A Entasso extra support wire was placed in the left ventricle. A 26+2mm Padilla S3 Resilia valve was brought to position and under rapid right ventricular pacing was deployed. Post-procedure, there was trivial AI and no residual . Guidewires and balloons were removed at this time. The temporary pacer was removed. The 14-Puerto Rican Padilla eSheath was removed and two crisscross Percloses tied with adequate hemostasis. The arterial sheath on the right was removed and a single Perclose tied. The venous sheath on the left was removed and a single Angioseal used for hemostasis. Protamine was given to reverse the effects of heparin. The patient was stable post-procedure. Good pulses in the legs and no evidence of bleeding, transferred to the PACU in stable condition. Counts repoted as correct: Yes BEBETO YI MD Jul 24, 2025 16:24
[2025-07-24] MEDS: DOCUMENT DATE & TIME OF BETA-BLOCKER PO ONE (19:01)
[2025-07-24] MEDS ORDERED: dextrose 50%-water 50ml dispensing syringe IV PRN ×2 (20:25)
[2025-07-24] MEDS ORDERED: glucagon, human recombinant 1mg kit SUBCUT PRN (20:25)
[2025-07-24] MEDS ORDERED: DEXTROSE 15 GM of carb/4 tabs (each vial/BOTTLE has 4 tablets) PO PRN ×2 (20:25)
[2025-07-24] MEDS: vancomycin/NS 1 GM ADD-VANTAGE 250 ML IV SCH (20:28)
[2025-07-24] MEDS: multivitamins, therapeutics tablet PO SCH (20:28)
[2025-07-24] MEDS: cyanocobalamin 500mcg tablet PO SCH (20:28)
[2025-07-24] MEDS: pantoprazole 40mg Tablet.DR PO SCH (20:28)
[2025-07-24] MEDS: sacubitril/valsartan 24mg-26mg tablet PO SCH (20:28)
[2025-07-24] MEDS: MELOXICAM 7.5 MG TABLET PO SCH (20:28)
[2025-07-24] MEDS: INSULIN LISPRO 100 UNIT/ML INSULN.PEN MULTI-DOSE SQ SCH (21:00)
[2025-07-25 07:00] LABS: MEAN PLATELET VOLUME 7.5 FL (7.4-10.4); RED CELL DISTRIBUTION WIDTH 15.0 % (11.5-14.5)
[2025-07-25 07:28] LABS: CREATININE 1.27 MG/DL (0.60-1.10); PRO BRAIN NATRIURETIC PEPTIDE 224 PG/ML (0-450); TOTAL CARBON DIOXIDE 25.5 MMOL/L (24-32); eCRCL 47 ML/MIN; eGFR 54 ML/MIN
--- NOTE | 2025-07-25 07:41 | RADIOLOGY REPORT ---
CHEST RADIOGRAPH Indication: s/p TAVR Technique: Single frontal view of the chest was obtained COMPARISON: DI CHEST,TWO VIEWS on DOS: 07/20/25, DI CHEST,TWO VIEWS on DOS: 07/01/25 FINDINGS: Lines and Tubes: Left chest wall pacemaker. Lungs: Clear Pleura: No effusion.No pneumothorax. Cardiomediastinal contours: Status post TAVR Bones: Unremarkable IMPRESSION: No acute cardiopulmonary disease.
[2025-07-25 08:00] VITALS: RESP 20; O2SAT 93
[2025-07-25 08:39] VITALS: BP_SYST 116; PULSE 76
[2025-07-25] MEDS: metoprolol succinate 25mg (24-HOUR) SR. Tablet PO SCH (08:39)
[2025-07-25] MEDS: levoTHYROXINE 25mcg tablet PO SCH (08:40)
[2025-07-25] MEDS: cholecalciferol (vitamin D3) 1,000 unit (25mcg) tablet PO SCH (08:43)
--- NOTE | 2025-07-25 08:53 | ELECTROCARDIOGRAPH REPORT ---
[facility] Test Date: 2025-07-25 Test Time: 08:50:51 Pat Name: CHATO GARRISON Department: [facility] 3S Room: [place] [address] B Gender: M Mix Crusher Operator: JULIA : 1940 Requested By: ORA MILLER Order Number: [id number] Reading MD: Dr. ANTIONE Leone Measurements Intervals [place] Rate: 85 P: 41 MS: 201 QRS: -74 QRSD: 147 T: 86 QT: 393 QTc: 468 Interpretive Statements Atrial-sensed ventricular-paced rhythm No further analysis attempted due to paced rhythm Electronically Signed On 07-25-2025 12:11:[address] ANTIONE Leone Please click the below link to view image of tracing.
== END 2025-07-25 14:17 | disposition home or self-care (01) | DRG 267 ==
LOC: PAS IN 05:36 → PCU 3S 12:30
PROVIDERS: ADMIT Internal Medicine Cardiovascular Disease; ATTEND Internal Medicine Cardiovascular Disease
PROC: B41D1ZZ Fluoroscopy of Aorta and Bilateral Lower Extremity Arteries using Low Osmolar Contrast (ICD-10-PCS; 2025-07-24)
PROC: 03HY32Z Insertion of Monitoring Device into Upper Artery, Percutaneous Approach (ICD-10-PCS; 2025-07-24)
PROC: 02RF38Z Replacement of Aortic Valve with Zooplastic Tissue, Percutaneous Approach (ICD-10-PCS; principal; 2025-07-24 08:36)
DX: I35.0 Nonrheumatic aortic (valve) stenosis (principal); Z00.6 Encounter for examination for normal comparison and control in clinical research program; I50.22 Chronic systolic (congestive) heart failure; I11.0 Hypertensive heart disease with heart failure; I48.91 Unspecified atrial fibrillation; Z88.0 Allergy status to penicillin; Z91.09 Other allergy status, other than to drugs and biological substances
CPT/HCPCS: 33361; 36415; 71045; 71046; 76937; 80053; 81001; 82948; 83036; 83735; 83880; 84443; 85025; 85347; 85610; 85730; 86885; 86900; 86901; 86920; 87077; 87081; 87088; 87186; 93005; 93308; A4618; A6258; A6402; A6449; C1756; C1760; C1769; C1894; G0378; J0131; J1644; J1815; J2003; J2371; J2704; J2720; J3010; J3373; J3375; J3490; J7030; J7040; J7050; J7120; Q9967